=== PATIENT | female | born 1950 | race Two or more races ===

== ENCOUNTER 2022-10-19 21:17 | Emergency (ER) | payer OTHER ==
[2022-10-19 21:22] VITALS: BP 122/72; PULSE 70; RESP 16; TEMP 97.9; BMI 28.3
[2022-10-19] MEDS ORDERED: CLINDAMYCIN 900 MG PREMIX IVPB 900 MG/50 ML BAG IVPB ONE ×2 (22:18→22:27)
[2022-10-19 22:48] LABS: VENOUS BASE EXCESS 4.3 mmol/L (-2-2); VENOUS O2 SATURATION 45.5 % (70-80); VENOUS PCO2 54.5 mmHg (38-52); VENOUS PH 7.373 (7.310-7.410)
[2022-10-19 22:49] LABS: BASO % 0.5 % (0-2.0); EOS % 1.9 % (0-4.5); HEMATOCRIT 40.6 % (32.4-45.2); HEMOGLOBIN 13.8 GM/dL (10.7-15.3); LYMPH % 40.6 % (8-40); MCH 29.2 pg (25.7-33.7); MEAN CELL VOLUME 85.9 fl (80-96); MEAN PLT VOLUME 7.6 fl (7.5-11.1); MONO % 7.1 % (3.8-10.2); NEUT % 49.9 % (42.8-82.8); PLATELET COUNT 246 10^3/uL (134-434); RBC 4.72 M/mm3 (3.60-5.2); RDW 13.5 % (11.6-15.6)
[2022-10-19] MEDS ORDERED: ACETAMINOPHEN 500 MG TABLET (FP) PO ONE (23:12)
[2022-10-19] MEDS ORDERED: ACETAMINOPHEN 325 MG TABLET (FP) ONE (23:14)
[2022-10-19 23:23] LABS: POTASSIUM 4.1 mmol/L (3.5-5.1)
[2022-10-19 23:25] LABS: CALCIUM 9.7 mg/dL (8.5-10.1)
[2022-10-19 23:26] LABS: ALBUMIN 3.8 g/dl (3.4-5.0)
[2022-10-19 23:29] LABS: CREATININE 0.6 mg/dL (0.55-1.3)
[2022-10-19 23:30] LABS: TOT PROT 6.9 g/dl (6.4-8.2)
[2022-10-19 23:31] LABS: BILIRUBIN,TOTAL 0.2 mg/dL (0.2-1)
== END 2022-10-20 00:11 | disposition home or self-care (01) ==
LOC: JER 21:17 → JERFT 21:17 → JER 10-20 00:11
DX: L97.529 Non-pressure chronic ulcer of other part of left foot with unspecified severity (principal)
CPT/HCPCS: 36415; 73630-TC-LT; 80053; 82803; 85025; 99284-25

== ENCOUNTER 2023-03-24 14:27 | Emergency (ER) | payer OTHER ==
[2023-03-24 14:33] VITALS: RESP 19; BMI 23.0
[2023-03-24] MEDS ORDERED: ACETAMINOPHEN 325 MG TABLET (FP) PO ONE (15:24)
[2023-03-24] MEDS ORDERED: ACETAMINOPHEN 325 MG TABLET (FP) ONE (16:26)
[2023-03-24 16:28] LABS: BASO % 0.5 % (0-2.0); EOS % 1.3 % (0-4.5); HEMATOCRIT 42.2 % (32.4-45.2); HEMOGLOBIN 14.4 GM/dL (10.7-15.3); LYMPH % 31.5 % (8-40); MCH 29.5 pg (25.7-33.7); MCHC 34.1 g/dl (32.0-36.0); MEAN CELL VOLUME 86.6 fl (80-96); MEAN PLT VOLUME 7.8 fl (7.5-11.1); MONO % 5.8 % (3.8-10.2); NEUT % 60.9 % (42.8-82.8); PLATELET COUNT 272 10^3/uL (134-434); RBC 4.88 M/mm3 (3.60-5.2); RDW 13.1 % (11.6-15.6); WHITE BLOOD COUNT 8.6 K/mm3 (4.0-10.0)
[2023-03-24 16:50] LABS: POTASSIUM 4.3 mmol/L (3.5-5.1)
[2023-03-24 16:52] LABS: BLOOD UREA NITROGEN 10.5 mg/dL (7-18); CALCIUM 9.1 mg/dL (8.5-10.1)
[2023-03-24 16:53] LABS: ALBUMIN 4.2 g/dl (3.4-5.0)
[2023-03-24 16:56] LABS: CREATININE 0.6 mg/dL (0.55-1.3)
[2023-03-24 16:57] LABS: BILIRUBIN,TOTAL 0.3 mg/dL (0.2-1); TOT PROT 7.8 g/dl (6.4-8.2)
[2023-03-24 17:49] VITALS: BP 118/57; PULSE 83; TEMP 98.3
== END 2023-03-24 17:50 | disposition home or self-care (01) ==
LOC: JER 14:27
DX: R53.83 Other fatigue (principal); R06.02 Shortness of breath; M79.10 Myalgia, unspecified site; R05.9 Cough, unspecified; B97.4 Respiratory syncytial virus as the cause of diseases classified elsewhere; Z20.822 Contact with and (suspected) exposure to COVID-19
CPT/HCPCS: 0241U-QW; 36415; 71046-TC-FY; 80053; 85025; 99284-25

== ENCOUNTER 2023-11-29 20:47 | Emergency (ER) | payer OTHER ==
[2023-11-29 21:01] VITALS: BMI 22.1
[2023-11-29 23:40] LABS: BASO % 0.7 % (0-2.0); EOS % 0.9 % (0-4.5); HEMATOCRIT 42.5 % (32.4-45.2); HEMOGLOBIN 14.4 GM/dL (10.7-15.3); LYMPH % 28.5 % (8-40); MCH 29.5 pg (25.7-33.7); MCHC 33.8 g/dl (32.0-36.0); MEAN CELL VOLUME 87.1 fl (80-96); MEAN PLT VOLUME 7.8 fl (7.5-11.1); MONO % 6.5 % (3.8-10.2); NEUT % 63.4 % (42.8-82.8); PLATELET COUNT 298 10^3/uL (134-434); RBC 4.88 M/mm3 (3.60-5.2); RDW 13.3 % (11.6-15.6); WHITE BLOOD COUNT 12.6 K/mm3 (4.0-10.0)
[2023-11-29] MEDS ORDERED: MECLIZINE HCL 25 MG TABLET (FP) ONE (23:43)
[2023-11-29] MEDS ORDERED: METOCLOPRAMIDE HCL INJECTION 10 MG/2 ML VIAL ONE (23:43)
[2023-11-29] MEDS ORDERED: ACETAMINOPHEN INJECTION 100 ML IVPB ONE (23:44)
[2023-11-30 00:11] LABS: POTASSIUM 4.9 mmol/L (3.5-5.1)
[2023-11-30 00:13] LABS: ALBUMIN 4.3 g/dl (3.4-5.0); BLOOD UREA NITROGEN 10.2 mg/dL (7-18); CALCIUM 10.2 mg/dL (8.5-10.1); MAGNESIUM 2.1 mg/dL (1.8-2.4)
[2023-11-30 00:16] LABS: CREATININE 0.6 mg/dL (0.55-1.3)
[2023-11-30 00:18] LABS: BILIRUBIN,TOTAL 0.6 mg/dL (0.2-1); TOT PROT 7.8 g/dl (6.4-8.2)
[2023-11-30] MEDS: ACETAMINOPHEN 1000 MG/100 ML BAG IVPB ONE (00:20)
[2023-11-30] MEDS: MECLIZINE HCL 25 MG TABLET (FP) PO ONE (00:20)
[2023-11-30] MEDS: SODIUM CHLORIDE 0.9% 500 ML INFUS.BAG IV ONE (00:20)
[2023-11-30] MEDS: METOCLOPRAMIDE HCL INJECTION 10 MG/2 ML VIAL IVPB ONE (00:20)
[2023-11-30 01:12] VITALS: BP 112/63; PULSE 74; RESP 12; TEMP 98.3
== END 2023-11-30 01:56 | disposition home or self-care (01) ==
LOC: JER 20:47
PROC: 3E033NZ Introduction of Analgesics, Hypnotics, Sedatives into Peripheral Vein, Percutaneous Approach (ICD-10-PCS; principal; 2023-11-30)
PROC: 3E033GC Introduction of Other Therapeutic Substance into Peripheral Vein, Percutaneous Approach (ICD-10-PCS; 2023-11-30)
DX: R42 Dizziness and giddiness (principal); R10.9 Unspecified abdominal pain; R11.10 Vomiting, unspecified
CPT/HCPCS: 36415; 80053; 83735; 85025; 96374; 96375; 99284-25; J0131